=== PATIENT | male | born 1970 | race Caucasian/White ===

== ENCOUNTER 2023-04-15 06:39 | Outpatient (OUT) | payer OTHER, SELFPAY ==
[2023-04-15 06:54] LABS: Basophils Percent Auto 0.3 % (0.2-2.0); Eosinophils Absolute Auto 0.1 10^3/uL (0.0-0.7); Eosinophils Percent Auto 1.5 % (0.9-7.0); Hematocrit 39.1 % (42.0-54.0); Immature Granulocytes Abs Auto 0.04 10^3/uL (0.00-0.03); Immature Granulocytes Pct Auto 0.6 % (0.0-0.5); Lymphocytes Absolute Auto 1.6 10^3/uL (1.2-3.8); Lymphocytes Percent Auto 21.8 % (20.5-60.0); Mean Corpuscular HGB Conc 33.2 g/dL (29.9-35.2); Mean Corpuscular Hemoglobin 30.2 pg (25.9-34.0); Mean Corpuscular Volume 90.9 fL (80.0-94.0); Mean Platelet Volume 9.5 fL (9.5-13.5); Monocytes Absolute Auto 0.6 10^3/uL (0.3-0.8); Monocytes Percent Auto 7.6 % (1.7-12.0); Neutrophils Absolute Auto 4.9 10^3/uL (1.4-6.5); Neutrophils Percent Auto 68.2 % (43.0-75.0); Platelet Count 188 10^3/uL (150-450); Red Cell Distribution Width 12.8 % (11.0-15.0); White Blood Count 7.2 10^3/uL (4.0-11.0)
[2023-04-15 07:51] LABS: Estimated Average Glucose 97 mg/dL
[2023-04-15 08:50] LABS: Alanine Aminotransferase 24 U/L (16-63); Albumin Globulin Ratio 1.1; Albumin Level 3.7 g/dL (3.4-5.0); Alkaline Phosphatase 43 U/L (46-116); Anion Gap 12.3; Aspartate Amino Transferase 17 U/L (15-37); BUN Creatinine Ratio 10.1; Bilirubin Total 0.4 mg/dL (0.2-1.0); Calcium 8.6 mg/dL (8.5-10.1); Chloride 105 mmol/L (98-107); Chol HDL Ratio 4.1; Cholesterol 149 mg/dL (<=200); Estimated GFR (African America >60 (>=60); Estimated GFR (Non-African Ame 50 (>=60); Free T3 2.68 pg/mL (2.18-3.98); Globulin 3.5 g/dL; Glucose 112 mg/dL (74-106); HDL Cholesterol 36 mg/dL (40-60); Potassium 4.3 mmol/L (3.5-5.1); Prostate Specific Antigen Scrn 1.96 ng/mL (<=4.00); Sodium 140 mmol/L (136-145); Thyroid Stimulating Hormone 2.006 uIU/mL (0.358-3.740); Total Protein 7.2 g/dL (6.4-8.2); Triglycerides 121 mg/dL (<=150); VLDL CHOLESTEROL 24.2 mg/dL
[2023-04-16 11:15] LABS: Insulin 22.5 uIU/mL (2.6-24.9)
== END 2023-04-15 06:40 | disposition home or self-care (01) ==
LOC: LAB 06:39
PROVIDERS: PCP Family Medicine; Visit Provider Family Medicine
DX: Z00.00 Encounter for general adult medical examination without abnormal findings (principal); Z12.5 Encounter for screening for malignant neoplasm of prostate
CPT/HCPCS: 36415; 80053; 80061; 83036; 83525; 84436; 84443; 84481; 85025; G0103

== ENCOUNTER 2023-04-22 10:36 | Outpatient (OUT) | payer OTHER, SELFPAY ==
[2023-04-22 12:46] LABS: Creatinine Urine Random 63.18 mg/dL (20.00-300.00)
[2023-04-22 12:51] LABS: Total Volume 24 Hour Urine 3850 mL/24hr
== END 2023-04-22 10:37 | disposition home or self-care (01) ==
LOC: LAB 10:36
PROVIDERS: PCP Family Medicine; Visit Provider Family Medicine
DX: R79.89 Other specified abnormal findings of blood chemistry (principal)
CPT/HCPCS: 82570

== ENCOUNTER 2023-04-29 07:56 | Outpatient (OUT) | payer OTHER, SELFPAY ==
--- NOTE | 2023-04-29 08:05 | US_ITS ---
The [address] [address] Patient Name: JERROD OZUNA MRN: [id number] date: 1970 Sex: M Assigned Patient Location: [place] Current Patient Location: [place] Accession/Order Number: [id number] Exam Date: 04/29/2023 08:06 Report Date: 04/29/2023 11:24 At the request of: LEROY FERNANDO Procedure: US renal bladder US renal bladder EXAM DATE: 04/29/2023 6:06 AM MST COMPARISON: None available. INDICATION: Abnormal labs. TECHNIQUE: Real-time ultrasound scanning of the kidneys and bladder was performed by the elementary educator. Senior Accounting Clerk static images are submitted for review. FINDINGS: Right Kidney: The right kidney measures 11.5 x 6.4 x 6.6 cm. Normal echogenicity. No hydronephrosis. No shadowing calculi. No obvious contour deforming lesion or solid renal mass. Renal cortex measures 1.4 cm. Left Kidney: The left kidney measures 11.7 x 6.1 x 5.4 cm. Normal echogenicity. No hydronephrosis. No shadowing calculi. No obvious contour deforming lesion or solid renal mass. Renal cortex measures 2 cm. Bladder: Bladder volume measures 179 mL with a 17 mL postvoid residual. No focal or diffuse bladder wall thickening noted US/US renal bladder IMPRESSION: 1. No hydronephrosis. 2. PVR measures 17 mL (9%). Electronically authenticated by: QUIQUE KING Date: 04/29/2023 11:24
== END 2023-04-29 07:57 | disposition home or self-care (01) ==
LOC: US 07:58
PROVIDERS: PCP Family Medicine; Visit Provider Family Medicine
DX: N28.9 Disorder of kidney and ureter, unspecified (principal)
CPT/HCPCS: 76770

== ENCOUNTER 2023-10-21 07:22 | Outpatient (OUT) | payer OTHER, SELFPAY ==
--- OUTSIDE RECORDS SUMMARY | 2023-10-21 07:26 | XMS_ITS | CCD ---
Author Organization [facility] Care Team Providers Care Organizational Psychologist Name Role Phone Leroy Peralta Primary Care Physician DR HOSEA BYERS Attending Unavailable BYERS, DR CABRERA Consulting Unavailable AIXA, DR CABRERA Admitting Unavailable DR LEROY PERALTA Primary Care Unavailable Hosea BYERS Attending Unavailable AIXA, Hosea Parada Attending Unavailable BYERS, Hosea Parada Admitting Unavailable AIXA, Hosea Parada Attending Unavailable BYERS, Hosea Parada Attending Unavailable DINARY, BUTHAYNA Referring Unavailable Unavailable Primary Care Provider Unavailabl e Allergies Allergy Classification Reported Allergen(s) Allergy Type Date of Onset Reaction(s) Facility (1 source) Sulfamethoxazole / Trimethoprim Drug Allergy [facility] Repository (4 sources) Sulfamethoxazole / Trimethoprim; Translations: [sulfamethoxazole-t rimethoprim] Drug Allergy 05-18-20 Itching (finding), Itching [facility] (1 source) No Known Medication Allergies; Translations: [No Known Medication Allergies] Propensity to adverse reactions (disorder) [facility] Repository (1 source) Sulfamethoxazole / Trimethoprim; Translations: [SULFAMETHOXAZOLE-T RIMETHOPRIM] Drug Allergy 05-18-20 [facility] Repository Medications Current Medications Medication Drug Class(es) Dates Sig (Normalized) Sig (Original) cephalexin 500 mg oral capsule (1 source) Cephalosporin Antibacterial Start: 06-27-2022 take 1 capsule by mouth twice daily Keflex 500 mg Cap 500 mg = 1 cap(s), Oral, BID, Start one day prior to procedure., # 10 cap(s), Refills(s) 0, Pharmacy: [facility]/pharmacy #[id number], 178, cm, 06/27/22 10:33:00 EST, Height/Length Dosing, 109, kg, 06/27/22 10:33:00 EST, Weight Dosing Start Date: 06/27/22 Status: Ordered diazePAM 10 mg oral tablet (1 source) Benzodiazepine Start: 06-27-2022 Valium 10 mg Tab 10 mg = 1 tab(s), Oral, Once, Take 30 minutes to 1 hour prior to procedure., # 1 tab(s), Refills(s) 0, Pharmacy: [facility]/pharmacy #[id number], 178, cm, 06/27/22 10:33:00 EST, Height/Length Dosing, 109, kg, 06/27/22 10:33:00 EST, Weight Dosing Start Date: 06/27/22 Status: Ordered sildenafil 100 mg oral tablet (1 source) Phosphodiesterase 5 Inhibitor Start: 10-29-2019 take 1 tablet by mouth once daily as needed Viagra 100 mg Tab 100 mg = 1 tab(s), Oral, Daily, PRN erectile dysfunction, Refills(s) 0 Start Date: 10/29/19 Status: Ordered Completed/Discontinued Medications Medication Drug Class(es) Dates Sig (Normalized) Sig (Original) bisoprolol fumarate 5 mg oral tablet (4 sources) beta-Adrenergic Prosper Start: 10-29-2019 bisoprolol (ZEBETA) 5 mg tablet 24 hr buPROPion hydrochloride 150 mg extended release oral tablet (4 sources) Aminoketone Start: 03-12-2023 buPROPion XL (WELLBUTRIN XL) 150 mg 24 hr tablet Start: 10-29-2019 take 1 tablet by tia th once daily buPROPion 150 mg/24 hours ER Tab 150 mg = 1 tab(s), Oral, Daily, Refills(s) 0 Start Date: 10/29/19 Status: Ordered fenofibrate 160 mg oral tablet (4 sources) Peroxisome Proliferator Receptor alpha Agonist Start: 10-29-2019 Fenofibrate (LOFIBRA) 160 mg tablet hydrALAZINE hydrochloride 25 mg oral tablet (4 sources) Arteriolar Vasodilator Start: 10-29-2019 End: 07-20-2023 hydrALAZINE (APRESOLINE) 25 mg tablet losartan potassium 25 mg oral tablet (1 source) Angiotensin 2 Receptor Prosper Start: 05-18-2023 take 1 tablet by mouth once daily losartan (COZAAR) 25 mg tablet Take 1 tablet by mouth once daily. 90 tablet 3 05/18/2023 Active Comment on above: Take 1 tablet by tia th once daily. omega-3 fatty acids 1,000 mg cap (1 source) Start: 05-18-2023 take 1 capsule by mouth once daily omega-3 fatty acids 1,000 mg cap Take 1 capsule by mouth once daily. 30 capsule 3 05/18/2023 Active Comment on above: Take 1 capsule by [facility] once daily. pantoprazole 40 mg delayed release oral tablet (1 source) Proton Pump Inhibitor Start: 05-09-2023 End: 07-20-[address] (PROTONIX) 40 mg tablet simvastatin 10 mg oral tablet (4 sources) HMG-CoA Reductase Inhibitor Start: 10-29-2019 simvastatin (ZOCOR) 10 mg tablet Problems Problem Classification Problem Date Documented Date Episodic/Chronic Cardiac and circulatory congenital anomalies (3 sources) Atrial septal defect 10-29-2019 Chronic Chronic kidney disease (1 source) Chronic kidney disease stage 3; Translations: [CKD stage G3a/A1, GFR 45-59 and albumin creatinine ratio <30 mg/g ([facility])] 07-20-2023 Chronic Chronic kidney disease (1 source) Chronic kidney disease; Translations: [CKD stage G3a/A3, GFR 45-59 and albumin creatinine ratio >300 mg/g (HCC)] Onset: 07-13-2023 Contraceptive and procreative management (5 sources) Contraception status; Translations: [Encounter for other general counseling and advice on contraception] Onset: 06-27-2022 Episodic Disorders of lipid metabolism (5 sources) Hypertriglyceridemia ; Translations: [Hyperlipidemia, unspecified] Onset: 07-28-2022 10-29-2019 Chronic Essential hypertension (5 sources) Benign essential hypertension; Translations: [Essential (primary) hypertension] Onset: 07-28-2022 10-29-2019 Chronic Genitourinary symptoms and ill-defined conditions (3 sources) Nocturia; Translations: [Other proteinuria] Onset: 07-28-2022 07-20-2023 Episodic Hemorrhoids (3 sources) External hemorrhoids 10-29-2019 Episodic Hypertension with complications and secondary hypertension (1 source) Hypertensive renal disease; Translations: [Hypertensive chronic kidney disease with stage 1 through stage 4 chronic kidney disease, or unspecified chronic kidney disease] 07-23-2023 Chronic Nutritional deficiencies (2 sources) Vitamin D deficiency, unspecified; Translations: [Vitamin D deficiency] Onset: 07-13-2023 07-20-2023 Chronic Other male genital disorders (3 sources) Impotence 10-29-2019 Chronic Other male genital disorders (1 source) Male erectile dysfunction, unspecified; Translations: [MALE ERECTILE DYSFUNCTION UNS] Onset: 07-28-2022 Chronic Other screening for suspected conditions (not mental disorders or infectious disease) (2 sources) Encounter for screening for malignant neoplasm of prostate; Translations: [Screening for malignant neoplasm done] Onset: 06-27-2022 Episodic Spondylosis; intervertebral disc disorders; other back problems (3 sources) Sciatica 10-29-2019 Episodic Unclassified (6 sources) Patient encounter status 06-27-2022 Unclassified (1 source) ATRIAL SEPTAL DEFECT UNSPECIFIED; Translations: [ATRIAL SEPTAL DEFECT UNSPECIFIED] Onset: 07-28-2022 Results Test Name Value Interpretation Reference Range Facility 25(OH)D3 [facility] 2023 25-hydroxyvitamin D3 [Mass/Vol] 25.4 ng/mL Low 31.0-80.0 [facility] Comment on above: Order Comment: Speci men Type: BLOOD SPECIMEN Ordering Facility: [facility] Address: [address] [place] [address] Result Comment: Clas sification of 25 [place] Vitamin D status: Deficiency/Insufficiency: < or = 30 ng/ml. Sufficiency/Optimal Levels: 31-80 ng/mL Toxicity: > 100 ng/mL. Test performed by chemiluminescent immunoassay. Performed By: #### 1 989-3 #### [facility] CLIA [id number] [address] [place] [address] [place] ALBUMIN/CREAT RATIO RND URon 07-13-2023 Albumin DL <= 20 mg/L (U) [Mass/Vol] mg/dL Normal [facility] Comment on above: Order Comment: Speci men Type: URINE SPECIMEN Ordering Facility: [facility] Address: [address] [place] [address] Performed By: #### U ACR #### [facility] CLIA [id number] [address] [place] [address] [place] Albumin/Creatinin e (U) [Mass ratio] <7 Normal <30 [facility] Comment on above: Order Comment: Speci men Type: URINE SPECIMEN Ordering Facility: [facility] Address: [address] [place] [address] Result Comment: Adul t Male and Female Nephrotic Criteria: <30 mg/g is considered normal to mildly increased 30-300 mg/g is considered moderately increased >300 mg/g is considered severely increased KDIGO. (2013). KDIGO 2012 Clinical Practice Guideline for the Evaluation and Management of Chronic Kidney Disease. Official Journal of the International Society of Nephrology, 3(1), 1-150. Performed By: #### U ACR #### [facility] CLIA [id number] [address] [place] [address] [place] Creatinine (U) [Mass/Vol] 174.6 mg/dL Normal 20.0-300.0 [facility] Comment on above: Order Comment: Speci men Type: URINE SPECIMEN Ordering Facility: [facility] Address: [address] [place] [address] Performed By: #### U ACR #### [facility] CLIA [id number] [address] [place] [address] [place] Magnesium SerPl-mCncon 07-13 Magnesium [Mass/Vol] 2.0 mg/dL Normal 1.7-2.3 [facility] Comment on above: Order Comment: Speci men Type: BLOOD SPECIMEN Ordering Facility: [facility] Address: [address] [place] [address] Performed By: #### 1 9123-9, 51151-7, 3084-1 #### [facility] CLIA [id number] [address] [place] [address] [place] Prot/Creat Uron 07-13-2023 Protein/Creatinin e (U) [Mass ratio] 0.05 mg/mg Normal <0.15 [facility] Comment on above: Order Comment: Speci men Type: URINE SPECIMEN Ordering Facility: [facility] Address: [address] [place] [address] Result Comment: Adul t Proteinuria Categories: <0.15 mg/mg is considered normal to mildly increased 0.15 - 0.50 mg/mg is considered moderately increased >0.50 mg/mg is considered severely increased KDIGO. (2013). KDIGO 2012 Clinical Practice Guideline for the Evaluation and Management of Chronic Kidney Disease. Official Journal of the International Society of Nephrology, 3(1), 1-150. Performed By: #### 2 890-2 #### [facility] CLIA [id number] [address] [place] [address] [place] Protein/Creatinine (U) [Mass ratio]on 07-13-2023 Creatinine (U) [Mass/Vol] 171.4 mg/dL Normal 20.0-300.0 [facility] Comment on above: Order Comment: Speci men Type: URINE SPECIMEN Ordering Facility: [facility] Address: [address] [place] [address] Performed By: #### 2 890-2 #### [facility] CLIA [id number] [address] [place] [address] [place] Protein (U) [Mass/Vol] 9 mg/dL Normal 0-20 [facility] Comment on above: Order Comment: Speci men Type: URINE SPECIMEN Ordering Facility: [facility] Address: [address] [place] [address] Performed By: #### 2 890-2 #### [facility] CLIA [id number] [address] [place] [address] [place] Renal function 2000 panelon 07-13-2023 Albumin [Mass/Vol] 4.4 g/dL Normal 3.9-4.9 [facility] Comment on above: Order Comment: Speci men Type: BLOOD SPECIMEN Ordering Facility: [facility] Address: [address] [place] [address] Performed By: #### 1 9123-9, 15689-5, 3084-1 #### [facility] CLIA [id number] [address] [place] [address] [place] Anion gap [Moles/Vol] 12 mmol/L Normal 9-18 [facility] Comment on above: Order Comment: Speci men Type: BLOOD SPECIMEN Ordering Facility: [facility] Address: [address] [place] [address] Performed By: #### 1 9123-9, 92561-1, 308-1 #### [facility] CLIA [id number] [address] [place] [address] [place] Calcium [Mass/Vol] 9.9 mg/dL Normal 8.5-10.2 [facility] Comment on above: Order Comment: Speci men Type: BLOOD SPECIMEN Ordering Facility: [facility] Address: [address] [place] [address] Performed By: #### 1 9123-9, 13231-2, 308-1 #### [facility] CLIA [id number] [address] [place] [address] [place] Chloride [Moles/Vol] 105 mmol/L Normal 97-105 [facility] Comment on above: Order Comment: Speci men Type: BLOOD SPECIMEN Ordering Facility: [facility] Address: [address] [place] [address] Performed By: #### 1 9123-9, 77889-0, 3083-1 #### [facility] CLIA [id number] [address] [place] [address] [place] CO2 [Moles/Vol] 25 mmol/L Normal 22-30 [facility] Comment on above: Order Comment: Speci men Type: BLOOD SPECIMEN Ordering Facility: [facility] Address: [address] [place] [address] Performed By: #### 1 9123-9, 75445-5, 308-1 #### [facility] CLIA [id number] [address] [place] [address] [place] Creatinine [Mass/Vol] 1.45 mg/dL High 0.73-1.22 [facility] Comment on above: Order Comment: Stevie chen Type: BLOOD SPECIMEN Ordering Facility: [facility] Address: [address] [place] [address] Performed By: #### 1 9123-9, 43825-9, 3084-1 #### [facility] CLIA [id number] [address] [place] [address] [place] Creatinine and Glomerular filtration rate.predicted panel (S/P/Bld) 58 mL/min/1.73m??? Low >=60 [facility] Comment on above: Order Comment: Stevie chen Type: BLOOD SPECIMEN Ordering Facility: [facility] Address: [address] [place] [address] Result Comment: Yessica mated Glomerular Filtration Rate (eGFR) is calculated using the 2020 CKD-EPI creatinine equation. This equation utilizes serum creatinine, sex, and age as parameters. The creatinine assay has traceable calibration to isotope dilution-mass spectrometry. Refer to KDIGO guidelines for clinical interpretation. In patients with unstable renal function, e.g. those with acute kidney injury, the eGFR may not accurately reflect actual GFR. Performed By: #### 1 9123-9, 25067-2, 308-1 #### [facility] CLIA [id number] [address] [place] [address] [place] Glucose [Mass/Vol] 101 mg/dL High 74-99 [facility] Comment on above: Order Comment: Stevie chen Type: BLOOD SPECIMEN Ordering Facility: [facility] Address: [address] [place] [address] Result Comment: The [place] Diabetes Association (ADA) provides guidance for cutoff values for fasting glucose and random glucose. The ADA defines fasting as no caloric intake for at least 8 hours. Fasting plasma glucose results between 100 to 125 mg/dL indicate increased risk for diabetes (prediabetes). Fasting plasma glucose results greater than or equal to 126 mg/dL meet the criteria for diagnosis of diabetes. In the absence of unequivocal hyperglycemia, results should be confirmed by repeat testing. In a patient with classic symptoms of hyperglycemia or hyperglycemic crisis, random plasma glucose results greater than or equal to 200 mg/dL meet the criteria for diagnosis of diabetes. Reference: Standards of Medical Care in Diabetes 2016, [place] [employer] Association. Diabetes Care. 2016.39(Suppl 1). Performed By: #### 1 9123-9, 84608-1, 3083-1 #### [facility] CLIA [id number] [address] [place] [address] [place] Phosphate [Mass/Vol] 2.9 mg/dL Normal 2.7-4.8 [facility] Comment on above: Order Comment: Speci men Type: BLOOD SPECIMEN Ordering Facility: [facility] Address: [address] [place] [address] Performed By: #### 1 9123-9, 71256-3, 3083-1 #### [facility] CLIA [id number] [address] [place] [address] [place] Potassium [Moles/Vol] 4.6 mmol/L Normal 3.7-5.1 [facility] Comment on above: Order Comment: Speci men Type: BLOOD SPECIMEN Ordering Facility: [facility] Address: [address] [place] [address] Performed By: #### 1 9123-9, 77336-0, 3083-1 #### [facility] CLIA [id number] [address] [place] [address] [place] Sodium [Moles/Vol] 142 mmol/L Normal 136-144 [facility] Comment on above: Order Comment: Speci men Type: BLOOD SPECIMEN Ordering Facility: [facility] Address: [address] [place] [address] Performed By: #### 1 9123-9, 32926-7, 3083-1 #### [facility] CLIA [id number] [address] [place] [address] [place] Urea nitrogen [Mass/Vol] 11 mg/dL Normal 9-24 [facility] Comment on above: Order Comment: Speci men Type: BLOOD SPECIMEN Ordering Facility: [facility] Address: [address] [place] [address] Performed By: #### 1 9123-9, 65206-8, 3084-1 #### [facility] CLIA [id number] [address] [place] [address] [place] Urate SerPl-mCncon 4 Urate [Mass/Vol] 4.3 mg/dL Normal 4.0-8.1 [facility] Comment on above: Order Comment: Speci men Type: BLOOD SPECIMEN Ordering Facility: [facility] Address: [address] [place] [address] Performed By: #### 1 9123-9, 52911-8, 3084-1 #### [facility] CLIA [id number] [address] [place] [address] [place] Semen Analysis PostVason Sheba/Transport Prob No Problems Normal [facility] Comment on above: Performed By: #### 1 [id number], [id number] ####[address] [place] [address] Collect. Meth Masturbation Normal [facility] Comment on above: Performed By: #### 1 [id number], [id number] ####[address] [place] [address] Days Abstained 4 day(s) Normal 2-5 [facility] Comment on above: Performed By: #### 1 [id number], [id number] ####[address] [address] Post Vas Screen No Sperm Seen Normal <=0 [facility] Comment on above: Result Comment: A Co ncentration Technique is used to confirm any semen which is azospermic (no sperm seen). Performed By: #### 1 [id number], [id number] ####[address] [place] [address] Spec. Container Steril Container Normal [facility] Comment on above: Performed By: #### 1 [id number], [id number] ####[facility] [id number] [place] [address] Spec. Temp 24 DegC Normal 20-37 [facility] Comment on above: Performed By: #### 1 [id number], [id number] ####[facility] [address] [place] [address] Sperm Morphon 05-29-2023 Sperm Morph No sperm identified (A concentration technique is used to evaluate this specimen). ICD10 Z30.9 Invalid Interpretation Code [facility] Comment on above: Other Comment: Order Added by Discern Expert. Sperm Morph No sperm identified (A concentration technique is used to evaluate this specimen). Invalid Interpretation Code [facility] Comment on above: Order Comment: Order Added by Discern Expert. Performed By: #### 1 [id number], [id number] ####[facility] [address] [place] [address] Physician Orderon 05-20-2023 Physician Order [id number]# 1.00TIFF Normal [facility] Ambulatory Visit Summaryon 0 08-08-2022 Ambulatory Visit Summary AMAURI OZUNA :1970 Visit Date:08/08/2022 Ambulatory Visit Instructions Your Diagnosis Status post vasectomy Screening PSA (prostate specific antigen) Your Care Team Attending Physician - Hosea BYERS MD Primary Care Physician - Leroy Peralta MD This Is Your Medications List Contact prescribing physician if questions or concerns bisoprolol (bisoprolol 5 mg Tab) buPROPion (buPROPion 150 mg/24 hours ER Tab) fenofibrate (fenofibrate 160 mg oral tablet) hydrALAZINE (hydrALAZINE 25 mg Tab) simvastatin (simvastatin 10 mg Tab) Procedures Performed Vasectomy (07/25/2022), Colonoscopy, Hemorrhoidectomy. Discharge Vitals Height 178 cm Height 70 in Weight 109 kg Weight 239.8 lb BMI 34.4 What to do next You Need to Schedule the Following Appointments Follow Up with Hosea BYERS MD, URL When: Where: [facility] [address] [place] [address]- You Need to Complete the Following Semen Analysis Post Vasectomy, Semen, Routine collect, 08/08/22, Order for future visit, Nurse collect, Status post vasectomy, Print Label By Order Location Semen Analysis Post Vasectomy, Semen, Routine collect, 08/08/22, Order for future visit, Nurse collect, Status post vasectomy, Print Label By Order Location Medications What How Much When Instructions Unchanged bisoprolol (bisoprolol 5 mg Tab) 1 Tablets By Mouth Every day Contact prescribing physician if questions or concerns Unchanged buPROPion (buPROPion 150 mg/ 24 hours ER Tab) 1 Tablets By Mouth Every day Contact prescribing physician if questions or concerns Unchanged fenofibrate (fenofibrate 160 mg oral tablet) 1 Tablets By Mouth Every day Contact prescribing physician if questions or concerns Unchanged hydrALAZINE (hydrALAZINE 25 mg Tab) 1 Tablets By Mouth 2 times a day Contact prescribing physician if questions or concerns Unchanged simvastatin (simvastatin 10 mg Tab) 1 Tablets By Mouth Once a day (at bedtime) Contact prescribing physician if questions or concerns Allergies Bactrim (Itching) Problems Ongoing - Any problem that you are currently receiving treatment for. Atrial septal defect Benign essential hypertension ED (erectile dysfunction) Encounter for vasectomy assessment External hemorrhoids Hyperglyceridemia Sciatica Screening PSA (prostate specific antigen) Status post vasectomy Education Materials Contraception Choices Contraception, also called control, refers to methods or devices that prevent . Hormonal methods Contraceptive implant A contraceptive implant is a thin, plastic tube that contains a hormone. It is inserted into the upper part of the arm. It can remain in place for up to 3 years. Progestin-only injections Progestin-only injections are injections of progestin, a synthetic form of the hormone progesterone. They are given every 3 months by a health care provider. control pills control pills are pills that contain hormones that prevent . They must be taken once a day, preferably at the same time each day. control patch The control patch contains hormones that prevent . It is placed on the skin and must be changed once a week for three weeks and removed on the fourth week. A prescription is needed to use this method of contraception. Vaginal ring A vaginal ring contains hormones that prevent . It is placed in the vagina for three weeks and removed on the fourth week. After that, the process is repeated with a new ring. A prescription is needed to use this method of contraception. Emergency contraceptive Emergency contraceptives prevent after unprotected sex. They come in pill form and can be taken up to 5 days after sex. They work best the sooner they are taken after having sex. Most emergency contraceptives are available without a prescription. This method should not be used as your only form of control. Barrier methods Male condom A male condom is a thin sheath that is worn over the penis during sex. Condoms keep sperm from going inside a woman's body. They can be used with a spermicide to increase their effectiveness. They should be disposed after a single use. Female condom A female condom is a soft, loose-fitting sheath that is put into the vagina before sex. The condom keeps sperm from going inside a woman's body. They should be disposed after a single use. Diaphragm A diaphragm is a soft, dome-shaped barrier. It is inserted into the vagina before sex, along with a spermicide. The diaphragm blocks sperm from entering the uterus, and the spermicide kills sperm. A diaphragm should be left in the vagina for 6?8 hours after sex and removed within 24 hours. A diaphragm is prescribed and fitted by a health care provider. A diap (more content not included)... Normal [facility] Patient Educationon 08-08-19 23 Patient Education Obstetrics and Gynecology Contraception Choices Contraception, also called control, refers to methods or devices that prevent . Hormonal methods Contraceptive implant A contraceptive implant is a thin, plastic tube that contains a hormone. It is inserted into the upper part of the arm. It can remain in place for up to 3 years. Progestin-only injections Progestin-only injections are injections of progestin, a synthetic form of the hormone progesterone. They are given every 3 months by a health care provider. control pills control pills are pills that contain hormones that prevent . They must be taken once a day, preferably at the same time each day. control patch The control patch contains hormones that prevent . It is placed on the skin and must be changed once a week for three weeks and removed on the fourth week. A prescription is needed to use this method of contraception. Vaginal ring A vaginal ring contains hormones that prevent . It is placed in the vagina for three weeks and removed on the fourth week. After that, the process is repeated with a new ring. A prescription is needed to use this method of contraception. Emergency contraceptive Emergency contraceptives prevent after unprotected sex. They come in pill form and can be taken up to 5 days after sex. They work best the sooner they are taken after having sex. Most emergency contraceptives are available without a prescription. This method should not be used as your only form of control. Barrier methods Male condom A male condom is a thin sheath that is worn over the penis during sex. Condoms keep sperm from going inside a woman's body. They can be used with a spermicide to increase their effectiveness. They should be disposed after a single use. Female condom A female condom is a soft, loose-fitting sheath that is put into the vagina before sex. The condom keeps sperm from going inside a woman's body. They should be disposed after a single use. Diaphragm A diaphragm is a soft, dome-shaped barrier. It is inserted into the vagina before sex, along with a spermicide. The diaphragm blocks sperm from entering the uterus, and the spermicide kills sperm. A diaphragm should be left in the vagina for 6?8 hours after sex and removed within 24 hours. A diaphragm is prescribed and fitted by a health care provider. A diaphragm should be replaced every 1?2 years, after giving , after gaining more than 15 lb (6.8 kg), and after pelvic surgery. Cervical cap A cervical cap is a round, soft latex or plastic cup that fits over the cervix. It is inserted into the vagina before sex, along with spermicide. It blocks sperm from entering the uterus. The cap should be left in place for 6?8 hours after sex and removed within 48 hours. A cervical cap must be prescribed and fitted by a health care provider. It should be replaced every 2 years. Sponge A sponge is a soft, circular piece of polyurethane foam with spermicide on it. The sponge helps block sperm from entering the uterus, and the spermicide kills sperm. To use it, you make it wet and then insert it into the vagina. It should be inserted before sex, left in for at least 6 hours after sex, and removed and thrown away within 30 hours. Spermicides Spermicides are chemicals that kill or block sperm from entering the cervix and uterus. They can come as a cream, jelly, suppository, foam, or tablet. A spermicide should be inserted into the vagina with an applicator at least 10?15 minutes before sex to allow time for it to work. The process must be repeated every time you have sex. Spermicides do not require a prescription. Intrauterine contraception Intrauterine device (IUD) An IUD is a T-shaped device that is put in a woman's uterus. There are two types: ? Hormone IUD.This type contains progestin, a synthetic form of the hormone progesterone. This type can stay in place for 3?5 years. ? Copper IUD.This type is wrapped in copper wire. It can stay in place for 10 years. Permanent methods of contraception Female tubal ligation In this method, a woman's fallopian tubes are sealed, tied, or blocked during surgery to prevent eggs from traveling to the uterus. Hysteroscopic sterilization In this method, a small, flexible insert is placed into each fallopian tube. The inserts cause scar tissue to form in the fallopian tubes and block them, so sperm cannot reach an egg. The procedure takes about 3 months to be effective. Another form of control must be used during those [address] (more content not included)... [facility] Office/Clinic Noteon 08-08-2022 Urology Office/Clinic Note Chief Complaint S/P Vasectomy HPI Staff S/P Vasectomy done 07/25/22. Did have increased pain and bruising on Lt side, increased with activity. Subsided 1 wk after procedure. Denies any current complaints. History of Present Illness Tests reviewed: pathology. I have reviewed the previous health record information and history for this patient from Dr. Byers. I have reviewed and verified the staff HPI to be accurate for this encounter. There have been no associated fever, chills, flank pain, or blood in the urine. Denies any urinary infections since last encounter. Review of Systems PHQ Score Initial Depression Screen Score: 0 ROS - Provider Constitutional: denies weight loss, denies hot flashes. Eyes: denies eye problems. Gastrointestinal: denies nausea, denies vomiting. Cardiovascular: denies chest pain or angina. Integumentary: no dryness Musculoskeletal: denies musculoskeletal symptoms. ENMT: denies otolaryngeal symptoms. Respiratory: no shortness of breath. Heme/Lymph: denies easy bleeding tendency, denies easy bruising tendency. Psychiatric: no confusion, no anxiety. Genitourinary: See HPI. Physical Exam Vitals & Measurements HT: 70 in HT: 178 cm WT: 109 kg WT: 239.8 lb BMI: 34.4 General Appearance: alert, no distress, well nourished, well developed male. Genitourinary: normal scrotum, normal testes, normal urethra, normal epididymis, normal vas deferens/spermatic cord. Flank Pain: none. Bladder: nonpalpable. Assessment/Plan 1. Status post vasectomy (Z98.52: Vasectomy status) S/P vasectomy done 07/25/22. Pathology shows right and left vas deferens within normal limits. No sample provided for UA today. Given sterile cups and order for PO vas semen analysis. Did have increased pain and bruising on Lt side, increased with activity. Subsided 1 wk after procedure. Denies any current complaints. Path discussed, negative for malignancy. PE: healing well. Follow up PRN. Pt understands and agrees with plan. 2. Screening PSA (prostate specific antigen) (Z12.5: Encounter for screening for malignant neoplasm of prostate) PCP is Dr. Peralta. Most recent PSA 0.69 done 06/01/21 (reported by pt). Did not have a PSA done in 2021. Reports he has annual blood work done for work, believes PSA screening is included. Last VINCENT around March, reports normal. Most recent PSA normal for his age range. -cont PSA monitoring with PCP Follow-up With When Contact Information AIXA NORMAN, Hosea Parada, URL [facility] [address] [place] [address]- Additional Instructions: PRN Patient Education Contraception Choices I, Juana Lynn, personally scribed for Dr. Byers on 08/08/2022 16:23:33. . Documentation recorded by the scribe, Juana Lynn, accurately reflects the services(s) I performed and decisions made by me. Authenticated by Dr. Byers on 08/08/2022 16:28:23. Problem List/Past Medical History Ongoing Atrial septal defect Benign essential hypertension ED (erectile dysfunction) Encounter for vasectomy assessment External hemorrhoids Hyperglyceridemia Sciatica Screening PSA (prostate specific antigen) Status post vasectomy Historical No qualifying data Procedure/Surgical History Vasectomy (07/25/2022), Colonoscopy, Hemorrhoidectomy. Medications bisoprolol 5 mg Tab, 5 mg= 1 tab(s), Oral, Daily buPROPion 150 mg/24 hours ER Tab, 150 mg= 1 tab(s), Oral, Daily fenofibrate 160 mg oral tablet, 160 mg= 1 tab(s), Oral, Daily hydrALAZINE 25 mg Tab, 25 mg= 1 tab(s), Oral, BID simvastatin 10 mg Tab, 10 mg= 1 tab(s), Oral, Once a day (at bedtime) Allergies Bactrim (Itching) Social History Alcohol Current, Wine, Liquor, 1-2 times per week, 10/29/2019 Substance Abuse - Denies Substance Abuse, 10/29/2019 Tobacco Never (less than 100 in lifetime) Tobacco Use:. Never Smokeless Tobacco Use:., 08/08/2022 Family History Acute myocardial infarction: Mother. Hyperlipidemia: Mother and Father. Hypertension: Mother and Father. Stroke: Father. Ulcerative colitis: Mother. [facility] Comment on above: Result Comment: Elec tronically Signed By: Hosea BYERS MD\.br\Date and Time Signed: 08/08/22 16:28 EST\.br\Electronically Co-Signed By: Juana Lynn.br\Date and Time Co-Signed: 08/08/22 16:28 EST Operative Reporton 3 Operative Report [id number] .00CD:127 [facility] Pathology Noteon 07-27-2022 Pathology Note [id number] .00CD:127 [facility] Operative Reporton 3 Operative Report [id number] .[id number]:127 [facility] Consent for Procedure/Surger yon 07-01-2022 Consent for Procedure/Surgery [id number] .[id number]:127 [facility] Ambulatory Visit Summaryon 0 06-27-2022 Ambulatory Visit Summary AMAURI OZUNA :1970 Visit Date:06/27/2022 Ambulatory Visit Instructions Your Diagnosis Encounter for vasectomy assessment Screening PSA (prostate specific antigen) Tests Performed Urnls Dip Stick Auto w/o Microscopy POC [id number] Your Care Team Attending Physician - Hosea BYERS MD Primary Care Physician - Leroy Peralta MD This Is Your Medications List cephalexin (Keflex 500 mg Cap) diazepam (Valium 10 mg Tab) Contact prescribing physician if questions or concerns bisoprolol (bisoprolol 5 mg Tab) buPROPion (buPROPion 150 mg/24 hours ER Tab) fenofibrate (fenofibrate 160 mg oral tablet) hydrALAZINE (hydrALAZINE 25 mg Tab) sildenafil (Viagra 100 mg Tab) simvastatin (simvastatin 10 mg Tab) Procedures Performed Colonoscopy, Hemorrhoidectomy. Discharge Vitals Heart Rate (Peripheral) 75 Respiratory Rate 16 Blood Pressure 139/88 Height 178 cm Height 70 in Weight 109 kg Weight 239.8 lb BMI 34.4 What to do next Scheduled Follow-Up Appointments Monday 3:30 PM EST With: AIXA NORMAN, oHsea Parada Where: [facility] Formson 06-27-2022 Forms [id number] .[id number]:127 [facility] Patient Educationon 06-27-19 23 Patient Education Urology Vasectomy, Care After This sheet gives you information about how to care for yourself after your procedure. Your health care provider may also give you more specific instructions. If you have problems or questions, contact your health care provider. What can I expect after the procedure? After your procedure, it is common to have: ? Mild pain, swelling, redness, or discomfort in your scrotum. ? Some blood coming from your incisions or puncture sites for one or two days. ? Blood in your semen. Follow these instructions at home: Medicines ? Take [id number] and prescription medicines only as told by your health care provider. ? Avoid taking NSAIDs such as aspirin and ibuprofen, because these medicines can make bleeding worse. Activity ? For the first 2 days after surgery, avoid physical activity and exercise that require a lot of energy. Ask your health care provider what activities are safe for you. ? Do not participate in sports or perform heavy physical labor until your pain has improved, or until your health care provider says it is okay. ? Do not ejaculate for at least 1 week after the procedure, or as long as directed. ? You may resume sexual activity 7?10 days after your procedure, or when your health care provider approves. Use a different method of control (contraception) until you have had test results that confirm that there is no sperm in your semen. Scrotal support ? Use scrotal support, such as a jock strap or underwear with a supportive pouch, as needed for one week after your procedure. ? If you feel discomfort in your scrotum, you may remove the scrotal support to see if the discomfort is relieved. Sometimes scrotal support can press on the scrotum and cause or worsen discomfort. ? If your skin gets irritated, you may add some germ-free (sterile), fluffed bandages or a clean washcloth to the scrotal support. General instructions ? Put ice on the injured area: ? Put ice in a plastic bag. ? Place a towel between your skin and the bag. ? Leave the ice on for 20 minutes, 2?3 times a day. ? Check your incisions or puncture sites every day for signs of infection. Check for: ? Redness, swelling, or pain. ? Fluid or blood. ? Warmth. ? Pus or a bad smell. ? Leave stitches (sutures) in place. The sutures will dissolve on their own and do not need to be removed. ? Keep all follow-up visits as told by your health care provider. This is important because you will need a test to confirm that there is no sperm in your semen. Multiple ejaculations are needed to clear out sperm that were beyond the vasectomy site. You will need one test result showing that there is no sperm in your semen before you can resume unprotected sex. This may take 2?4 months after your procedure. ? Do not drive for 24 hours if you were given a sedative to help you relax. Contact a health care provider if: ? You have redness, swelling, or more pain around your incision or puncture site, or in your scrotum area in general. ? You have bleeding from your incision or puncture site. ? You have pus or a bad smell coming from your incision or puncture site. ? You have a fever. ? Your incision or puncture site opens up. Get help right away if: ? You develop a rash. ? You have difficulty breathing. Summary ? After your procedure it is common to have mild pain, swelling, redness, or discomfort in your scrotum. ? Avoid physical activity and exercise that requires a lot of energy for the first 2 days after surgery. ? Put ice on the injured area. Leave the ice on for 20 minutes, 2?3 times a day. ? Do not drive for 24 hours if you were given a sedative to help you relax. This information is not intended to replace advice given to you by your health care provider. Make sure you discuss any questions you have with your health care provider. Document Released: 12/16/2005 Document Revised: 05/11/2018 Document Reviewed: 08/25/2017 [employer] Patient Education ? 2019 [employer]. [facility] Urology Office/Clinic Noteon 06-27-2022 Urology Office/Clinic Note Chief Complaint vascetomy consult HPI Staff New pt for vasectomy consult today. Pt has 3 children and desires sterilization. Dysuria: no Incomplete bladder emptying: no Hematuria: no Frequency: no Urgency: no Nocturia: 1x Stream: slower Leaking: no Post void dripping: no Wearing pads/ Depends: no Urge incontinence: no Stress incontinence: no Incontinence without Sensory Awareness: no Abdominal pain: no Flank pain: no Sexual complaints: no History of Present Illness Tests reviewed: reviewed UA I have reviewed the previous health record information and history for this patient. I have reviewed and verified the staff HPI to be accurate for this encounter. There have been no associated fever, chills, flank pain, or blood in the urine. Denies any urinary infections since last encounter. Review of Systems PHQ Score Initial Depression Screen Score: 0 ROS - Provider Constitutional: denies weight loss, denies hot flashes. Eyes: denies eye problems. Gastrointestinal: denies nausea, denies vomiting. Cardiovascular: denies chest pain or angina. Integumentary: no dryness Musculoskeletal: denies musculoskeletal symptoms. ENMT: denies otolaryngeal symptoms. Respiratory: no shortness of breath. Heme/Lymph: denies easy bleeding tendency, denies easy bruising tendency. Psychiatric: no confusion, no anxiety. Genitourinary: See HPI. Physical Exam Vitals & Measurements HR: 75(Peripheral) RR: 16 BP: 139/88 HT: 70 in HT: 178 cm WT: 109 kg WT: 239.8 lb BMI: 34.4 General Appearance: alert, no distress, well nourished, well developed male. Head: normocephalic . Eyes: normal orbit and globe. ENMT: normal examination of external ears. Chest: Lungs CTA, respirations non labored. Cardiovascular: regular rate and rhythm. Abdomen: soft, non distended, no tenderness, no mass or organomegaly, no hernia. Genitourinary: normal scrotum, normal testes, normal urethra, normal epididymis, normal vas deferens/spermatic cord. Flank Pain: none. Bladder: nonpalpable. Penis: normal shaft, normal glans. Lymph Nodes: unremarkable palpation of the cervical area. Skin: warm, dry, no bruising. Psychiatric: cooperative, affect appropriate for age, normal judgement, euthymic mood. Assessment/Plan Denies any hx of kidney stones. 1. Encounter for vasectomy assessment (Z30.09: Encounter for other general counseling and advice on contraception) New pt here for for vasectomy consult today. UA today negative for blood and infection. Denies any urinary habit complaints. Pt has 3 children and desires sterilization. Educational pamphlets provided. Inquired about carrying upstairs, fine, otherwise avoid strenuous activity. Ice scrotum day of procedure and entire day after procedure. PE: normal. Will schedule Vasectomy. The procedural risks, benefits, details, and treatment alternatives of sterilization have been discussed with the patient today. He understands this procedure is considered permanent, even though vasectomy reversals can be performed. There is no guarantee of successful reversal resulting in , however. Risks discussed include bleeding, infection, failure with in about 1:2500, post-vasectomy syndrome (chronic pain in the testicle or scrotum), possible association with prostate cancer development in the future, and erection problems, among others. Despite these risks, he wishes to proceed. He also understands that he is not considered sterile until a negative semen sample has been received after about 2-3 months after the vasectomy. Full informed consent has been obtained. Will order Local anesthesia. Valium and abx rxs sent to [facility] (pt confirmed pharmacy). 2. Screening PSA (prostate specific antigen) (Z12.5: Encounter for screening for malignant neoplasm of prostate) PCP is Dr. Peralta. Most recent PSA 0.69 done 06/01/21 (reported by pt). Did not have a PSA done in 2021. Reports he has annual blood work done for work, believes PSA screening is included. Last VINCENT around March, reports normal. Discussed most recent PSA normal for his age range. Follow-up With When Contact Information Hosea BYERS MD, URL [facility] [address] [place] [address]- Additional Instructions: schedule vasectomy Patient Education Vasectomy, Care After I, Juana Lynn, personally scribed for Dr. Byers on 06/27/2022 11:42:43. . Documentation recorded by the scribe, Juana Lynn, accurately reflects the services(s) I performed and decisions made by me. Authenticated by Dr. Byers on 06/27/2022 11:45:18. Problem List/Past Medical History Ongoing Atrial septal defect Benign essential hypertension ED (erectile dysfunction) Encounter for vasectomy assessment External hemorrhoids Hyperglyceridemia Sciatica Screening PSA (prostate specific antigen) Historical No qualifying data Procedure/Surgi (more content not included)... [facility] Comment on above: Result Comment: Elec tronically Signed By: Hosea BYERS MD\.br\Date and Time Signed: 06/27/22 11:45 EST\.br\Electronically Co-Signed By: Juana Lynn\.br\Date and Time Co-Signed: 06/27/22 11:42 EST Vital Signs Date Time Vital Sign Value Performing Clinician Faci lity 07-20-2023 10:27-0500 Body height 177.8 cm Marla Jarrell MD Work Phone: [facility] 07-20-2023 10:27-0500 Body weight 94.35 kg Marla Jarrell MD Work Phone: [facility] 07-20-2023 10:27-0500 Diastolic blood pressure 91 mm[Hg] Marla Jarrell MD Work Phone: [facility] 07-20-2023 10:27-0500 Heart rate 53 /min Marla Jarrell MD Work Phone: [facility] 07-20-2023 10:27-0500 Systolic blood pressure 154 mm[Hg] Marla Jarrell MD Work Phone: [facility] 06-27-2022 10:13-0500 Blood Pressure Location Hosea BYERS [facility] 06-27-2022 10:13-0500 Diastolic blood pressure 88 mm[Hg] Hosea BYERS [facility] 06-27-2022 10:13-0500 Heart rate 75 /min Hosea BYERS [facility] 06-27-2022 10:13-0500 Respiratory rate 16 /min Hosea BYERS [facility] 06-27-2022 10:13-0500 Systolic blood pressure 139 mm[Hg] Hosea BYERS [facility] Encounters Encounter Date Encounter Type Care Provider Facility Start: 07-20-2023 End: 07-20-2023 Office outpatient visit 25 minutes Marla Jarrell MD Work Phone: [facility] Comment on above: CKD stage G3a/A1, GF R 45-59 and albumin creatinine ratio <30 mg/g (HCC) (Primary Dx); Vitamin D deficiency; Other proteinuria; Hypertensive kidney disease Start: 07-13-2023 End: 07-13-2023 ambulatory MARLA JARRELL Facility:[facility] Start: 05-20-2023 End: 05-21-2023 ambulatory Hosea BYERS Facility:[facility] Start: 05-20-2023 End: 05-20-2023 Lab Drop off Hosea BYERS [facility] Start: 08-08-2022 End: 08-09-2022 ambulatory Hosea BYERS Facility:[facility] Start: 08-08-2022 End: 08-08-2022 Patient encounter procedure Hosea BYERS [facility] Start: 07-25-2022 End: 07-26-[address] HOSEA BYERS Facility: Start: 06-27-2022 End: 06-28-2022 ambulatory Hosea BYERS Facility:[facility] Start: 06-27-2022 End: 06-27-2022 Patient encounter procedure Hosea BYERS [facility] Procedures Date Procedure Procedure Detail Performing Clinician Start: 08-08-2022 H/O: vasectomy Hosea BYERS Start: 07-25-2022 Vasectomy Hosea GALLO Colonoscopy Hosea BYERS Hemorrhoidectomy Hosea LOWE Plan of Treatment Date Care Activity Detail Author Start: 07-13-2024 Creatinine measurement Serum Creatin ine [facility] Start: 01-18-2024 End: 04-18-2024 25-hydroxyvitamin D3 [Mass/volume] in Serum or Plasma VITAMIN D 25 HYDROXY Lab Routine CKD stage G3a/A1, GFR 45-59 and albumin creatinine ratio <30 mg/g (HCC) Vitamin D deficiency Other proteinuria Expected: 01/18/2024, Expires: 04/18/2024 CP [facility] Work Phone: Comment on above: Expected: 01/18/2024 , Expires: 04/18/2024 Start: 01-18-2024 End: 04-18-2024 ALBUMIN/CREAT RATIO RND UR ALBUMIN/CREAT RATIO RND UR Lab Routine CKD stage G3a/A1, GFR 45-59 and albumin creatinine ratio <30 mg/g ([facility]) Vitamin D deficiency Other proteinuria Expected: 01/18/2024, Expires: 04/18/2024 CP [facility] Work Phone: Comment on above: Expected: 01/18/2024 , Expires: 04/18/2024 Start: 01-18-2024 End: 04-18-2024 Magnesium [Mass/volume] in Serum or Plasma MAGNESIUM BLD Lab Routine CKD stage G3a/A1, GFR 45-59 and albumin creatinine ratio <30 mg/g ([facility]) Vitamin D deficiency Other proteinuria Expected: 01/18/2024, Expires: 04/18/2024 NICOLLE [facility] Work Phone: Comment on above: Expected: 01/18/2024 , Expires: 04/18/2024 Start: 01-18-2024 End: 04-18-2024 Parathyrin.intact [Mass/volume] in Serum or Plasma PTH INTACT BLD Lab Routine CKD stage G3a/A1, GFR 45-59 and albumin creatinine ratio <30 mg/g ([facility]) Vitamin D deficiency Other proteinuria Expected: 01/18/2024, Expires: 04/18/2024 CP [facility] Work Phone: Comment on above: Expected: 01/18/2024 , Expires: 04/18/2024 Start: 01-18-2024 End: 04-18-2024 Renal function 2000 panel - Serum or Plasma RENAL FUNCTION PANEL Lab Routine CKD stage G3a/A1, GFR 45-59 and albumin creatinine ratio <30 mg/g (HCC) Vitamin D deficiency Other proteinuria Expected: 01/18/2024, Expires: 04/18/2024 CP [facility] Work Phone: Comment on above: Expected: 01/18/2024 , Expires: 04/18/2024 Start: 01-18-2024 End: 04-18-2024 Urate [Mass/volume] in Serum or Plasma URIC ACID BLOOD Lab Routine CKD stage G3a/A1, GFR 45-59 and albumin creatinine ratio <30 mg/g (HCC) Vitamin D deficiency Other proteinuria Expected: 01/18/2024, Expires: 04/18/2024 [facility] Work Phone: Comment on above: Expected: 01/18/2024 , Expires: 04/18/2024 Start: 06-12-2023 Depression Assessment Depression Ass essment [facility] Start: 02-10-2023 Influenza vaccination Influenza Vacc ine (#1) [facility] Start: 09-20-2021 Shingrix Vaccine (1 of 2) Shingrix Vaccine (1 of 2) [facility] Start: 09-20-2016 Diabetes Screening Diabetes Screenin g [facility] Start: 09-20-2016 Screening for malign ant neoplasm of colon [facility] Start: 09-20-2006 Lipid panel Lipid Screening [facility] Start: 09-20-1990 Urine microalbumin profile DTaP,Tdap,Td Vaccine (1 - Tdap) [facility] Start: 09-20-1989 Annual PCP Team [employer] arist[employer] Disease Visit Annual PCP Team Chronic Disease Visit [facility] Start: 09-20-1989 Complete blood count Hemoglobin/Vitaliy tocrit [facility] Start: 09-20-1989 Hepatitis C screening Hepatitis C Sc reening [facility] Start: 09-20-1989 HIV screening HIV Screening [facility] Start: 03-22-1972 Covid-19 Vaccine (#1) Covid-19 Vacci ne (#1) [facility] Start: 1970 Hepatitis B Vaccine (1 of 3 - 3-dose series) Hepatitis B Vaccine (1 of 3 - 3-dose series) [facility] Payers Date Payer Category Payer Unknown [id number] 1971 Unknown [id number] 1971 Unknown [id number] 1971 Unknown [id number] 1971 Unknown [id number] 1959 Unknown [id number] Social History Date Type Detail Facility Start: 06-27-2022 End: 08-08-2022 Tobacco smoking status Never smoked tobacco (finding) [facility] Tobacco smoking status Never [facility] Start: 07-20-2023 Sex Assigned At Male F [facility] Tobacco smoking status NHIS Tobacco smoking consumption unknown [facility] Start: 07-20-2023 History of Social function [facility] Start: 1970 Sex Assigned At Not on file C [facility] Functional Status Date Assessment Result Facility 08-08-2022 Functional Status N/A [facility] 06-27-2022 Functional Status N/A [facility] History of Present illness Narrative 07-20-2023 Marla Jarrell MD - 07/20/2023 10:47 AM EST Note Date & Type Note Facility 07-20-2023 History of Presen t illness Narrative Nephrology Department OUTPATIENT VISIT DATE Jul 20, 2023 OUTPATIENT VISIT TYPE Established visit Self-referral Cc: Chronic kidney disease, proteinuria second visit White coat symdrome Today's office visit July 20, 2023: Patient lost 23 pounds since last visit he has been following intermittent fasting. Limited protein intake to 56 g of protein a day. Can increase it now to 60 to 70 g a day. Vitamin D deficiency with vitamin D level of 25 to start D3 1000 units daily Hypertension blood pressure well-controlled at home 120/80. Office blood pressure elevated. To continue losartan. To discontinue hydralazine Risk factor for CKD: Excessive exogenous protein intake Analgesic use Hypertension Hyperlipidemia cabinet builder Proteinuria: 24-hour urinary protein 2432 milligram/g July 13, 2023 albumin to creatinine ratio: Less than 7 mg/g Protein to creatinine ratio 0.05 mg/g Uric acid 4.3 Serum creatinine 1.45 mg deciliter eGFR 58. Likely serum creatinine higher than average due to increased muscle mass and most likely his GFR is higher than that. We can check Cystatin C to a certain true underlying GFR History of present illness: Amauri Ozuna is a 52 year old for proteinuric kidney disease evaluation. Patient lives in [facility]. Works in [place]. Renal history: Patient reports few years history of practicing heavy exercises and consuming large amount of protein from the age of 39 to 48 years old. During the same. Patient reports heavy NSAID use at that time. Hypertension managed with bisoprolol 5 mg p.o. daily, hydralazine 25 mg p.o. twice daily Hyperlipidemia managed with simvastatin, hypertriglyceridemia managed with fenofibrate 160 mg p.o. daily patient on bupropion 100 mg twice a day history of atrial septal defect past surgical history significant for vasectomy in 2012. Both parents with diabetes and hypertension. Father alive 80 years old diagnosed with heart disease, diabetes Mother alive 74-year-old patient with daughter and son. Social history: Denies smoking or alcohol use. Allergy to sulfa Patient was diagnosed with fluorescein 2005 Patient with elevated triglycerides, hyperlipidemia and has been taken fenofibrate's. 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 Today's office visit July 20, 2023: Patient changed his diet significantly since last visit and he lost 23 pounds also intermittent fasting and he lowered his protein intake. His kidney function is better as well as his protein in the urine resolved completely Patient was evaluated today, treatment plan discussed. CKD workup ordered Patient risk factors: well controlled. Denies uremic symptoms. To continue same regimen. Labs ordered to monitor for medication side effects. Patient reports better blood pressure BP 120-130/80, HR 60, Afebrile, wt stable. Meds reviewed, refilled. Patient's blood pressure is well controlled at home. Reports fluid retention. Reports frothy urine. -Duration (when): years -Location (where): kidneys -Severity (ex: creat 4.5, BP 200/100): Cr to 1.4 mg liter eGFR 40-50 mill per minute per 1.73 m graft -Context: Heavy exogenous protein intake, analgesic use, hypertension -Timing/Modifying factors/Associated symptoms (ex: meds/continuous/SOB/edema): continuous Recent procedures/hospitalizations/contrasted CT scans: denies Patient denies CP, SOB, orthopnea or PND. Denies progressive leg edema No nausea, emesis,abdominal pain or diarrhea No dysuria, gross hematuria or new flank pain. No fever or chills. No dizziness,JOHNSON or focal numbness or weakness. Wt is stable ALLERGIES Allergen Reactions Bactrim [Sulfametho* Itching Current Outpatient Medications Medication Sig bisoprolol (ZEBETA) 5 mg tablet buPROPion XL (WELLBUTRIN XL) 150 mg 24 hr tablet Fenofibrate (LOFIBRA) 160 mg tablet simvastatin (ZOCOR) 10 mg tablet losartan (COZAAR) 25 mg tablet Take 1 tablet by mouth once daily. omega-3 fatty acids 1,000 mg cap Take 1 capsule by mouth once daily. No current facility-administered medications for this visit. No past medical history on file. No past surgical history on file. No family history on file. REVIEW OF SYMPTOMS: CONSTITUTIONAL: Denies fevers, chills, and weight changes. Denies fatigue/malaise. PULMONARY: Denies shortness of breath, wheezing, cough or hemoptysis. CARDIOLOGY: Denies chest pain, palpitations, HOYT, orthopnea or PND. GI: No anorexia, nausea, vomiting, dysphagia, diarrhea, constipation, abdominal pain, hematochezia or melena. : No urinary hesitancy or dribbling. No nocturia or urinary frequency. No abnormal discharge. No hematuria, dysuria, or flank pain. MUSCULO-SKELETAL: No joint pain, swelling or erythema. SKIN: Denies any rashes or skin changes. No itching. EXTREMITIES: Denies any lower Extremity edema. Denies any claudication or peripheral ulcer. A full 12 point ROS was obtained and is negative other than that cited above. PHYSICAL EXAMINATION: BP 154/91 (BP Site: Left Arm, BP Position: Standing) Pulse (!) 53 Ht 177.8 cm (5' 10 ) Wt 94.3 kg (208 lb) BMI 29.84 kg/m BMI 29.84 kg/(m^2) GENERAL: Well developed and well nourished, NAD. EYES: Conjunctivae- pink, Non-icterus sclera. HEENT : Normocephalic, atraumatic, oral pharynx clear, MMM and pink. NECK : Supple, No JVD. No cervical lymphadenopathy or masses. No thyromegaly or tenderness. RESPIRATORY: Resp efforts are WNL. Bilat equal air entry. CTA bilaterally CVS : Pericardial friction rub is absent. S1, S2 Normal. No Murmer, or gallops. EDEMA trace VASCULAR: carotid pulses is palpable bilaterally; carotid bruit is absent; No Abdominal bruit. Peripheral pulse palpable . ABDOMEN: soft, non-distended, non-tender, Normoactive BS. No HSM. : NO CVA tenderness. bladder is not distended. LYMPHATICS: No cervical, axillary, inguinal lymphadenopathy. MUSULOSKELATAL: No swollen, tender, or warm joints present. No clubbing, cyanosis or petechiae. SKIN: No rashes or ulcers present. No induration of skin or subcutaneous area. LAB DATA Creatinine, Ur Random (UCRR) 20.0 - 300.0 mg/dL 174.6 171.4 Albumin, Urine Random mg/L <12.0 Albumin/Creat Ratio <30 mg/g <7 Protein, Urine Random 0 - 20 mg/dL 9 Creatinine, Ur Random (UCRR) 20.0 - 300.0 mg/dL 171.4 Protein/Creat Ratio <0.15 mg/mg 0.05 Labs from chronic April 15, 2023 as follow-up Serum creatinine 1.48 mg/L EGFR 50. Prior serum creatinine last year was 1.6 EGFR 40. Potassium 4.3 sodium 140 chloride 105 bicarb 27 glucose 112 slightly elevated. Calcium 8.6 bilirubin 0.4 liver enzymes within range alkaline phosphatase low at 43 total protein 4.7 PSA 1.9 T49.4 TSH 2 cholesterol LDL 75 triglycerides 136 24-hour protein to creatinine ratio 2432 mg/g hemoglobin 13 slightly on the lower side RBC 4.3. Abnormal immature granulocytes. T32.6 Within range. Hemoglobin A1c 5. Kidney ultrasound performed May 17, 2023 as follow-up. Right kidney no evidence of masses or kidney stones normal renal cortical parenchyma. 11.8 x 7.5 x 6.2 cm. Left kidney no evidence of mass or stones 11.9 cm x 5.6 cm. Postvoid residual 32.7 mL. ASSESSMENT AND PLAN 1) CKD Stage IIIA: Have range proteinuria 2432 -Etiology (likely): HTN, excessive exogenous protein intake and NSAIDS. Note pending C3/C4/SPEP/HCV/HBV -Will continue routine monitoring of chemistries. Kidney function: CKD (Cr trend over the years) Kidney sizes: moderatly large kidneys, with increased echogenicity, no obstruction Have reviewed CKD staging and preventing progression. Have reviewed NSAID avoidance and avoidance of IV dye. 2) Hypertension: On bisoprolol hydralazine - Suboptimal control, Recently better controlled - Recommended regular aerobic exercise. - Recommended home blood pressure monitoring, to bring results in on next visit - Goal of BP <140/90 - The patient was advised to follow a low salt/DASH diet. 3) Anemia: Mild anemia -Hemoglobin is adequate. -Continue periodic monitoring of CBC and iron studies. 4) Secondary Hyperparathyroidism/CKD-MBD: Monitor vitamin D -Intact PTH, vitamin d, calcium, and phosphorus levels are acceptable. -No changes -in management. -Will continue to monitor these indices. 5) Acid-base: Metabolic alkalosis to rule out aldosteronism -Serum bicarbonate level is acceptable. - No changes in management. 6) Proteinuria: -Will continue monitor microalbumin/creatinine ratio. 7) Dyslipidemia: -The patient has moderate CKD and would benefit from aggressive lipid control with an LDL goal of <100 and TG less than 150mg/dl. Plan: Complete resolution of proteinuria Exogenous protein intake likely the cause as patient follows a strict protein diet and his proteinuria resolved completely. Patient off NSAIDs since last visit. Chronic stage IIIa with heavy proteinuria suspected due to increased exogenous protein intake 24 years consumed more than 200 g of protein a day (5 times than normal allowed dose) Workup for secondary hypertension has been unremarkable Heavy analgesic use during the years of training Both above factors has been the past 3 years however CKD and proteinuria persist To rule out other as of CKD and hypertension: Workup ordered To continue diet and lifestyle modifications: To limit protein intake to not more than 40 g a day, 17 g/day To reduce salt and carb intake To limit fluid intake heavy range proteinuria related to fluid retention To continue losartan 25 mg p.o. daily To follow intermittent fasting 16 to 8 hours To minimize inflammation in the body To avoid NSAIDs To discontinue hydralazine To check Cystatin C as his creatinine might be elevated to 2 increased muscle mass The majority of the visit was spent counseling and/or coordinating care for the patient. We discussed natural history of disease, current treatment options, and future potential treatment options. We discussed diet, exercise, other non-medical management as above. I spent a total of 60 minutes on the date of the service which included preparing to see the patient, completing clinical documentation, obtaining and/or reviewing separately obtained history, performing a medically appropriate examination, counseling and educating the patient/family/caregiver, ordering medications, tests, or procedures, communicating results to the patient/family/caregiver, and care coordination (not separately reported). Current data and imaging studies were reviewed with patient. All questions were answered to patients satisfaction, who verbalized full understanding and was in agreement with above plan. Return in 6 months (on 01/18/2024). For follow-up I have asked that she return to clinic in 3 months or earlier if needed. Thank you for allowing me to participate in this patient's care. Please feel free to contact me with any questions or concerns. Follow up with No primary care provider on file. for all non-renal problems This note was partially created using voice recognition software and is inherently subject to errors including those of syntax and sound-alike substitutions which may escape proofreading. In such instances, original meaning may be extrapolated by contextual derivation. Some elements copied from my previous note which have been updated where appropriate, and all reflect current medical decision making from date of this visit.. With warmest regards, Marla Jarrell MD Nephrology and Hypertension [employer] Clinical anesthesia attending [facility] [address] [place], [place] [address] documented in this encounter [facility] Evaluation + Plan note 05-20-2023 Laboratory Note Date & Type Note Facility 05-20-2023 Evaluation + Plan note Diagnostic Tests PendingSemen Analysis Post Vasectomy 05/20/23Sperm Morphology 05/20/23 Future Scheduled TestsSemen Analysis Post Vasectomy 08/08/22 [facility] Evaluation + Plan note 08-08-2022 Laboratory Note Date & Type Note Facility 08-08-2022 Evaluation + Plan note Future Scheduled TestsSemen Analysis Post Vasectomy 08/08/22Semen Analysis Post Vasectomy 08/08/22 [facility] Discharge instructions 08-08-2022 Note Date & Type Note Facility 08-08-2022 Hospital Discharg e instructions Patient Education 08/08/2022 08:41:31 Contraception Choices Contraception Choices Contraception, also called control, refers to methods or devices that prevent . Hormonal methods Contraceptive implant A contraceptive implant is a thin, plastic tube that contains a hormone. It is inserted into the upper part of the arm. It can remain in place for up to 3 years. Progestin-only injections Progestin-only injections are injections of progestin, a synthetic form of the hormone progesterone. They are given every 3 months by a health care provider. control pills control pills are pills that contain hormones that prevent . They must be taken once a day, preferably at the same time each day. control patch The control patch contains hormones that prevent . It is placed on the skin and must be changed once a week for three weeks and removed on the fourth week. A prescription is needed to use this method of contraception. Vaginal ring A vaginal ring contains hormones that prevent . It is placed in the vagina for three weeks and removed on the fourth week. After that, the process is repeated with a new ring. A prescription is needed to use this method of contraception. Emergency contraceptive Emergency contraceptives prevent after unprotected sex. They come in pill form and can be taken up to 5 days after sex. They work best the sooner they are taken after having sex. Most emergency contraceptives are available without a prescription. This method should not be used as your only form of control. Barrier methods Male condom A male condom is a thin sheath that is worn over the penis during sex. Condoms keep sperm from going inside a woman's body. They can be used with a spermicide to increase their effectiveness. They should be disposed after a single use. Female condom A female condom is a soft, loose-fitting sheath that is put into the vagina before sex. The condom keeps sperm from going inside a woman's body. They should be disposed after a single use. Diaphragm A diaphragm is a soft, dome-shaped barrier. It is inserted into the vagina before sex, along with a spermicide. The diaphragm blocks sperm from entering the uterus, and the spermicide kills sperm. A diaphragm should be left in the vagina for 6 8 hours after sex and removed within 24 hours. A diaphragm is prescribed and fitted by a health care provider. A diaphragm should be replaced every 1 2 years, after giving , after gaining more than 15 lb (6.8 kg), and after pelvic surgery. Cervical cap A cervical cap is a round, soft latex or plastic cup that fits over the cervix. It is inserted into the vagina before sex, along with spermicide. It blocks sperm from entering the uterus. The cap should be left in place for 6 8 hours after sex and removed within 48 hours. A cervical cap must be prescribed and fitted by a health care provider. It should be replaced every 2 years. Sponge A sponge is a soft, circular piece of polyurethane foam with spermicide on it. The sponge helps block sperm from entering the uterus, and the spermicide kills sperm. To use it, you make it wet and then insert it into the vagina. It should be inserted before sex, left in for at least 6 hours after sex, and removed and thrown away within 30 hours. Spermicides Spermicides are chemicals that kill or block sperm from entering the cervix and uterus. They can come as a cream, jelly, suppository, foam, or tablet. A spermicide should be inserted into the vagina with an applicator at least 10 15 minutes before sex to allow time for it to work. The process must be repeated every time you have sex. Spermicides do not require a prescription. Intrauterine contraception Intrauterine device (IUD) An IUD is a T-shaped device that is put in a woman's uterus. There are two types: Hormone IUD.This type contains progestin, a synthetic form of the hormone progesterone. This type can stay in place for 3 5 years. Copper IUD.This type is wrapped in copper wire. It can stay in place for 10 years. Permanent methods of contraception Female tubal ligation In this method, a woman's fallopian tubes are sealed, tied, or blocked during surgery to prevent eggs from traveling to the uterus. Hysteroscopic sterilization In this method, a small, flexible insert is placed into each fallopian tube. The inserts cause scar tissue to form in the fallopian tubes and block them, so sperm cannot reach an egg. The procedure takes about 3 months to be effective. Another form of control must be used during those 3 months. Male sterilization This is a procedure to tie off the tubes that carry sperm (vasectomy). After the procedure, the man can still ejaculate fluid (semen). Natural planning methods Natural family planning In this method, a couple does not have sex on days when the woman could become . Calendar method This means keeping track of the length of each menstrual cycle, identifying the days when can happen, and not having sex on those days. Ovulation method In this method, a couple avoids sex during ovulation. Symptothermal method This method involves not having sex during ovulation. The woman typically checks for ovulation by watching changes in her temperature and in the consistency of cervical mucus. Post-ovulation method In this method, a couple waits to have sex until after ovulation. Summary Contraception, also called control, means methods or devices that prevent . Hormonal methods of contraception include implants, injections, pills, patches, vaginal rings, and emergency contraceptives. Barrier methods of contraception can include male condoms, female condoms, diaphragms, cervical caps, sponges, and spermicides. There are two types of IUDs (intrauterine devices). An IUD can be put in a woman's uterus to prevent for 3 5 years. Permanent sterilization can be done through a procedure for males, females, or both. Natural family planning methods involve not having sex on days when the woman could become . This information is not intended to replace advice given to you by your health care provider. Make sure you discuss any questions you have with your health care provider. Document Released: 05/29/2006 Document Revised: 05/31/2018 Document Reviewed: 07/01/2017 [employer] Patient Education 2020 [employer]. Follow Up Care 06/27/2022 11:47:27 With:AIXA NORMAN, Hosea Parada, URL Address: [facility] [address] [place] [id number]- When: Unknown [facility] Discharge instructions 06-27-2022 Note Date & Type Note Facility 06-27-2022 Hospital Discharg e instructions Patient Education 06/27/2022 08:12:28 Vasectomy, Care After Vasectomy, Care After This sheet gives you information about how to care for yourself after your procedure. Your health care provider may also give you more specific instructions. If you have problems or questions, contact your health care provider. What can I expect after the procedure? After your procedure, it is common to have: Mild pain, swelling, redness, or discomfort in your scrotum. Some blood coming from your incisions or puncture sites for one or two days. Blood in your semen. Follow these instructions at home: Medicines Take vfet-yqm-okwanez and prescription medicines only as told by your health care provider. Avoid taking NSAIDs such as aspirin and ibuprofen, because these medicines can make bleeding worse. Activity For the first 2 days after surgery, avoid physical activity and exercise that require a lot of energy. Ask your health care provider what activities are safe for you. Do not participate in sports or perform heavy physical labor until your pain has improved, or until your health care provider says it is okay. Do not ejaculate for at least 1 week after the procedure, or as long as directed. You may resume sexual activity 7 10 days after your procedure, or when your health care provider approves. Use a different method of control (contraception) until you have had test results that confirm that there is no sperm in your semen. Scrotal support Use scrotal support, such as a jock strap or underwear with a supportive pouch, as needed for one week after your procedure. If you feel discomfort in your scrotum, you may remove the scrotal support to see if the discomfort is relieved. Sometimes scrotal support can press on the scrotum and cause or worsen discomfort. If your skin gets irritated, you may add some germ-free (sterile), fluffed bandages or a clean washcloth to the scrotal support. General instructions Put ice on the injured area: ?Put ice in a plastic bag. ?Place a towel between your skin and the bag. ?Leave the ice on for 20 minutes, 2 3 times a day. Check your incisions or puncture sites every day for signs of infection. Check for: ?Redness, swelling, or pain. ?Fluid or blood. ?Warmth. ?Pus or a bad smell. Leave stitches (sutures) in place. The sutures will dissolve on their own and do not need to be removed. Keep all follow-up visits as told by your health care provider. This is important because you will need a test to confirm that there is no sperm in your semen. Multiple ejaculations are needed to clear out sperm that were beyond the vasectomy site. You will need one test result showing that there is no sperm in your semen before you can resume unprotected sex. This may take 2 4 months after your procedure. Do not drive for 24 hours if you were given a sedative to help you relax. Contact a health care provider if: You have redness, swelling, or more pain around your incision or puncture site, or in your scrotum area in general. You have bleeding from your incision or puncture site. You have pus or a bad smell coming from your incision or puncture site. You have a fever. Your incision or puncture site opens up. Get help right away if: You develop a rash. You have difficulty breathing. Summary After your procedure it is common to have mild pain, swelling, redness, or discomfort in your scrotum. Avoid physical activity and exercise that requires a lot of energy for the first 2 days after surgery. Put ice on the injured area. Leave the ice on for 20 minutes, 2 3 times a day. Do not drive for 24 hours if you were given a sedative to help you relax. This information is not intended to replace advice given to you by your health care provider. Make sure you discuss any questions you have with your health care provider. Document Released: 12/16/2005 Document Revised: 05/11/2018 Document Reviewed: 08/25/2017 [employer] Patient Education 2020 [employer]. Follow Up Care 05/03/2022 11:40:43 With:Hosea BYERS MD, URL Address: [facility] [address], [place] [address]- When: Unknown [facility] Evaluation + Plan note Note Date & Type Note Facility Evaluation + Plan note Future Appointments Appointment Date:08/08/2022 03:30:00 PM Scheduled Provider:Hosea BYERS MD Location:[facility] Appointment Type:URO Office Visit [facility] Evaluation note Note Date & Type Note Facility Evaluation note Diagnosis CKD stage G3a/A1, GFR 45-59 and albumin creatinine ratio <30 mg/g (HCC)- Primary Vitamin D deficiency Unspecified vitamin D deficiency Other proteinuria Hypertensive kidney disease Unspecified hypertensive kidney disease with chronic kidney disease stage I through stage IV, or unspecified documented in this encounter [facility] course Narrative Note Date & Type Note Facility Hospital course Narrative No data available for this section [facility] Discharge instructions Note Date & Type Note Facility Hospital Discharge instructions No data available for this section [facility] Progress note Note Date & Type Note Facility Progress note No data available for this section [facility] Summary Purpose Family History No Family History Records Found No data available for this section No Family History Records FoundNo Family History Records Found Advance Directives No Advanced Directives Records FoundNo Advanced Directives Records FoundNo Advanced Directives Records Found Additional Source Comments Patient Care team informatio n (unrecognized section and content) Personnel Name: Leroy Peralta MD Address: Address: [address] [place] [address] Personnel Name: Leroy Peralta MD Address: Address: [address] [place] [address] Personnel Name: Leroy Peralta MD Address: Address: [address] [place] [address] (unrecognized sect ion and content) No Status Records FoundNo Status Records FoundNo Status Records Found INFORMATION SOURCE (unrecogn ized section and content) DATE CREATED AUTHOR 07/29/2022 [facility] DATE CREATED AUTHOR AUTHOR'S ORGANIZ ATION 06/08/2023 [facility] DATE CREATED AUTHOR AUTHOR'S ORGANIZ ATION 07/14/2023 [facility] Source Comments (unrecognize d section and content) In the event this informatio n is protected by the Federal Confidentiality of Alcohol and Drug Abuse Patient Records regulations: The Federal rules restrict any use of the information to criminally investigate or prosecute any alcohol or drug abuse patient.[facility] Reason for Visit (unrecogniz ed section and content) Reason Comments Follow Up FOR RECORDS PERTAINING TO PATIENTS WHO ARE OR HAVE BEEN ENROLLED IN A CHEMICAL DEPENDENCY/SUBSTANCEABUSE PROGRAM, SOME INFORMATION MAY BE OMITTED. This clinical summary was aggregated from multiple sources. Caution should be exercised in using it in the provision of clinical care. This summary normalizes information from multiple sources, and as a consequence, information in this document may materially change the coding, format and clinical context of patient data. In addition, data may be omitted in some cases. CLINICAL DECISIONS SHOULD BE BASED ON THE PRIMARY CLINICAL RECORDS. [facility] [employer] [facility]. provides no warranty or guarantee of the accuracy or completeness of information in this document.
[2023-10-21 08:01] LABS: Basophils Percent Auto 0.3 % (0.2-2.0); Eosinophils Absolute Auto 0.1 10^3/uL (0.0-0.7); Eosinophils Percent Auto 1.6 % (0.9-7.0); Hematocrit 38.5 % (42.0-54.0); Immature Granulocytes Abs Auto 0.02 10^3/uL (0.00-0.03); Immature Granulocytes Pct Auto 0.3 % (0.0-0.5); Lymphocytes Absolute Auto 2.1 10^3/uL (1.2-3.8); Lymphocytes Percent Auto 27.4 % (20.5-60.0); Mean Corpuscular HGB Conc 33.8 g/dL (29.9-35.2); Mean Corpuscular Hemoglobin 30.5 pg (25.9-34.0); Mean Corpuscular Volume 90.4 fL (80.0-94.0); Mean Platelet Volume 9.5 fL (9.5-13.5); Monocytes Absolute Auto 0.7 10^3/uL (0.3-0.8); Monocytes Percent Auto 8.7 % (1.7-12.0); Neutrophils Absolute Auto 4.7 10^3/uL (1.4-6.5); Neutrophils Percent Auto 61.7 % (43.0-75.0); Platelet Count 206 10^3/uL (150-450); Red Blood Count 4.26 10^6/uL (4.70-6.10); Red Cell Distribution Width 12.9 % (11.0-15.0); White Blood Count 7.7 10^3/uL (4.0-11.0)
[2023-10-21 11:02] LABS: Estimated Average Glucose 100 mg/dL; Glycohemoglobin A1C 5.1 % (4.5-6.2)
[2023-10-21 12:41] LABS: Alanine Aminotransferase 51 U/L (16-63); Albumin Globulin Ratio 1.2; Albumin Level 4.1 g/dL (3.4-5.0); Alkaline Phosphatase 49 U/L (46-116); Anion Gap 14.5; Aspartate Amino Transferase 123 U/L (15-37); Bilirubin Total 1.2 mg/dL (0.2-1.0); Calcium 9.4 mg/dL (8.5-10.1); Carbon Dioxide 25.4 mmol/L (21.0-32.0); Chloride 104 mmol/L (98-107); Chol HDL Ratio 3.1; Cholesterol 143 mg/dL (<=200); Estimated GFR (African America 57 (>=60); Estimated GFR (Non-African Ame 47 (>=60); Globulin 3.4 g/dL; Glucose 94 mg/dL (74-106); HDL Cholesterol 46 mg/dL (40-60); LDL Cholesterol Calculated 77.8 mg/dL; Potassium 3.9 mmol/L (3.5-5.1); Sodium 140 mmol/L (136-145); Thyroid Stimulating Hormone 1.539 uIU/mL (0.358-3.740); Total Protein 7.5 g/dL (6.4-8.2); Triglycerides 96 mg/dL (<=150); VLDL CHOLESTEROL 19.2 mg/dL
[2023-10-21 13:14] LABS: Prostate Specific Antigen Scrn 0.86 ng/mL (<=4.00)
[2023-10-21 14:23] LABS: Free T4 1.09 ng/dL (0.76-1.46)
== END 2023-10-21 07:23 | disposition home or self-care (01) ==
LOC: LAB 07:24
PROVIDERS: PCP Family Medicine; Visit Provider Family Medicine
DX: R53.83 Other fatigue (principal); Z79.899 Other long term (current) drug therapy; E78.1 Pure hyperglyceridemia; Z12.5 Encounter for screening for malignant neoplasm of prostate; R73.09 Other abnormal glucose
CPT/HCPCS: 36415; 80053; 80061; 83036; 84439; 84443; 85025; G0103

== ENCOUNTER 2025-04-25 08:41 | Outpatient (OUT) | payer OTHER, SELFPAY ==
--- OUTSIDE RECORDS SUMMARY | 2025-02-06 02:00 | XMS_ITS ---
Author Organization [facility] Address [address] [place] [address] Care Team Providers Care Merchandising Specialist Name Role Phone ADMIN, PROVIDER Primary Care Provider Jareth Echavarria Unavailable [phone] REASON FOR VISIT LAB DINARY Encounters Encounter Location Date Provider Diagnosis [facility] [address] [facility] [address] [place] [address] 02/06/2025 Jareth Echavarria Plan Of Treatment No Information Progress Notes * DAE OZUNAOB:1970 (54 yo M)Acc No.[id number]:02/06/2025 Patient:?LAITH JERROD :?KELY MorganOB:1970???Age:54 Y???Sex: MaleDate:02/06/2025Phone:[phone]:[id number]:PROVIDER ADMIN Subjective: * Chief Complaints: * L AB DINARY * Electronic signature of Jareth Echavarria MD on 04/25/2025 at 08:44 AM ESTSign off status: Pending * Provider: Constance Echavarria MD Date: 0 02/06/2025 Generated for Printing/Faxing/eTransmitting on:?04/25/2025 08:44 AM EST
--- OUTSIDE RECORDS SUMMARY | 2025-04-18 06:31 | XMS_ITS ---
Author Organization [facility] [place] Address [address] [place] [address] Care Team Providers Care It Application Administrator Name Role Phone Maurizio Peralta Primary Care Provider [phone] REASON FOR VISIT yearly labs Encounters Encounter Location Date Provider Diagnosis [facility] Medicine [address] [place] [address] 04/18/2025 Maurizio Peralta Wellness examination Z00.00 Assessments Encounter Date Diagnosis (ICD Code) Assessment Notes Treatment Notes Treatment Clinical Notes Section Notes 04/18/2025 Wellness examination (ICD-10 - Z 00.00) Plan Of Treatment Pending Test Test Name Order Date CBC 04/18/2025 CMP - Comprehensive Metabolic Panel 12/2024 GLYCOHEMOGLOBIN A1C 04/18/2025 LIPID PROFILE 04/18/2025 THYROID PANEL (T4/TSH/FREE T3) PSA, SCREENING 04/18/2025 Next Appt Details Provider Name:Maurizio Peralta, 09:30:00 AM, [address] [place], [address], Progress Notes * Amauri AGUIAR LDOB: 2 (54 yo M)Acc No.[id number]:04/18/2025 Patient:?Amauri AGUIAR :1970???Age:54 Y???Sex:MalePhone:[phone] Address:[address] [place], [address] Subjective: * Chief Complaints: * Y early labs * Medical History: * Surgical History: * Hospitalization/Major Diagno stic Procedure: * Medications: Objective: * Vitals: * Physical Examination: ??? Assessment: * Assessment: 1.?Wellness examination - Z00.00 (Primary)??? Plan: * Treatment: ?LAB: CBC ?LAB: CMP - Comprehensive Metabolic Panel ?LAB: GLYCOHEMOGLOBIN A1C ?LAB: LIPID PROFILE ?LAB: THYROID PANEL (T4/TSH/FREE T3) ?LAB: PSA, SCREENING * Procedure Codes: * true * Date:?Generated for Printing/Faxing/eTransmitting on:?04/25/2025 08:45 AM EST
--- OUTSIDE RECORDS SUMMARY | 2025-04-25 08:45 | XMS_ITS | Patient Health Record ---
Author Organization [facility] Address [address] [address] Care Team Providers Care Granite Sandblaster Apprentice Name Role Phone ADMIN, PROVIDER Primary Care Provider Radiology, [facility] Unavailable Jareth Echavarria Unavailable [phone] Results Component Value Reference Range Flag Notes US RENAL ARTERY DUPLEX (Not yet reviewed by provider) Interpretation: Performing Lab: Notes/Report: US KIDNEY & BLADDER (Not yet reviewed by provider) Interpretation: Performing Lab: Notes/Report: Ordering Provider: BEATRIZ JOHN Relevant Clinical Information: CHRONIC KIDNEY DISEASE NUMBER OF VIEWS:0 CONTRAST: Study Description: US KIDNEY & BLADDER Exam date 11/07/2024 Renal ultrasound Right kidney measured 12.2 x 5.8 x 5.9 cm. Left kidney measured 12.1 x 6.2 x 6.4 cm. Echogenicity of the renal cortex is normal bilaterally. There is no hydronephrosis. Within the midportion of the right kidney there is an 8 x 8 mm cyst. No stones are evident. Urinary bladder appears normal with no abnormal bladder wall thickening or bladder stones. Prevoid bladder volume is 630 cc of the postvoid bladder volume of 51 cc (8% residual). Prostate measures 4.9 x 4.1 x 4 cm. Impression: 1. Small postvoid residual bladder volume. 2. 8 mm right renal cyst Chin Biggs M.D. Electronically Signed by and Verified Date Report Signed: 11/07/2024 11:50:38 AM Service & Support: or [phone] Metanephrines, Frac., Pl. Fr ee Reviewed date:03/27/2025 01:17:40 PM Interpretation: Performing Lab: Notes/Report: Normetanephrine, Pl 55.6 0.0-244.0 pg/mL [place] [address] [place] [address] Metanephrine, Pl<25.00.0-88.0 pg/mL [facility] [place] [address] Cortisol Reviewed date:03/27/2025 01:17:40 PM Interpretation: Performing Lab: Notes/Report:Qtxsqjco22.66.2-19.4 ug/dL 6370 [facility], [facility] this test is for an AM collection. If this is a PM [facility] collection please use: Cortisol PM: 2.3-11.9 [place] [address] Please Note: The reference interval and flagging for Aldosterone/Renin Ratio Reviewed date:03/27/2025 01:17:40 PM Interpretation: Performing Lab: Notes/Report: [facility] Units: ng/dL per ng/mL/hr [address] [place] [address] [phone] [place] [address] [place] [address] [place] [address] Kristal Little, KEVANldosterone4.40.0-30.0 ng/dLRenin Activity, Plasma1.3110.167- 5.380 ng/mL/hrAldos/Renin Ratio3.40.0-30.0MICROALBUMIN, CREATININE RATIO, MALB/CREAT RATIO, RANDOM URINE Reviewed date:03/27/2025 01:17:40 PM Interpretation: Performing Lab:[facility], [address], [place] [address] Notes/Report: FTN: RATIO COULD NOT BE CALCULATED DUE TO THE NON-NUMERICAL VALUE OF MALBMALB<7 7.0 - 30.0 mg/LLUR STUVZFIKQJ766.111.0 - 150.0 mg/dLTSH, THYROID STIMULATING HORMONE Reviewed date:03/27/2025 01:17:40 PM Interpretation: Performing Lab:[facility], [address] [address] Notes/Report:TSH2.530.45 - 5.33 UIU/mLMICROALBUMIN, CREATININE RATIO, MALB/CREAT RATIO, RANDOM URINE Reviewed date:03/27/2025 01:17:32 PM Interpretation: Performing Lab:[facility], [address], [place] [address] Notes/Report: FTN: RATIO COULD NOT BE CALCULATED DUE TO THE NON-NUMERICAL VALUE OF MALBMALB<7 7.0 - 30.0 mg/LLUR DZGVSUJHGU937.111.0 - 150.0 mg/dL Reason For Referral No Information Social History Social History Tobacco Use:Social InfoQuestionAnswerNotesTobacco Use/Smoking? How long has it been since you last smoked?> 10 years Problems Problem Type SNOMED Code ICD Code Onset Dates Problem Status W/U Status Risk Notes Problem Vitamin D deficiency (76218345) Vitamin D deficiency (E55.9) ActiveconfirmedProblemChronic kidney disease due to hypertension (196381405537636)Hypertensive kidney disease (I12.9)ActiveconfirmedProblem chronic kidney disease stage 3a (disorder) (860720362)CKD stage G3a/A1, GFR 45- 59 and albumin creatinine ratio <30 mg/g (N18.31)Activeconfirmed Encounters Encounter Location Date [id number] [address] [place], [place] [id number] 11/07/2024 [facility] CKD stage G3a/A1, GFR 45-59 and albumin creatinine ratio <30 mg/g N18.31 [facility] Sne[facility]RAD [address] [place], [place] [id number] 02/06/2025 [facility] CKD stage G3a/A1, GFR 45-59 and albumin creatinine ratio <30 mg/g N18.31 and Hypertensive kidney disease I12.9 Assessments Encounter Date Diagnosis (ICD Code) Assessment Notes Treatment Notes Treatment Clinical Notes Section Notes 11/07/2024 CKD stage G3a/A1, GF R 45-59 and albumin creatinine ratio <30 mg/g (ICD-10 - N18.31) 08/28/2025Hypertensive kidney disease (ICD-10 - I12.9)5CKD stage G3a/A1, GFR 45-59 and albumin creatinine ratio <30 mg/g (ICD-10 - N18.31) Plan Of Treatment Pending Test Test Name Order Date US KIDNEY & BLADDER 10/31/2024 RENAL ARTERY DUPLEX 01/21/2025 Insurance Providers Payer Name Payer Address Payer Phone Subscriber Number Group Number Insured Name Patient Relationship to Insured Coverage Start Date Coverage End Date Medical [facility] [address] [place] [address] [id number] JERROD OZUNA Self - patient is the insured
--- OUTSIDE RECORDS SUMMARY | 2025-04-25 08:46 | XMS_ITS | Clinical Summary ---
Author Organization [facility] Address [address] [place] [address] Care Team Providers Care Industrial Gas Fitter Helper Name Role Phone Unavailable Primary Care Provider Unavailabl e Social History Tobacco UseTypesPacks/DayYears UsedDateSmoking Tobacco: Never AssessedSex and Gender InformationValueDate RecordedSex Assigned at BirthNot on fileLegal Sex Male12/08/2021 11:04 PM EDTGender IdentityNot on fileSexual OrientationNot on file Plan of Treatment Not on file
[2025-04-25 08:57] LABS: Hematocrit 40.9 % (42.0-54.0); Hemoglobin 14.0 g/dL (14.0-18.0); Immature Granulocytes Abs Auto 0.03 10^3/uL (0.00-0.03); Immature Granulocytes Pct Auto 0.4 % (0.0-0.5); Lymphocytes Absolute Auto 1.7 10^3/uL (1.2-3.8); Mean Corpuscular HGB Conc 34.2 g/dL (29.9-35.2); Mean Corpuscular Hemoglobin 30.5 pg (25.9-34.0); Mean Corpuscular Volume 89.1 fL (80.0-94.0); Platelet Count 216 10^3/uL (150-450); Red Blood Count 4.59 10^6/uL (4.70-6.10); White Blood Count 7.4 10^3/uL (4.0-11.0)
[2025-04-25 09:45] LABS: Alanine Aminotransferase 44 U/L (16-63); Albumin Globulin Ratio 1.1; Albumin Level 4.0 g/dL (3.4-5.0); Alkaline Phosphatase 52 U/L (46-116); Anion Gap 13.8; Aspartate Amino Transferase 29 U/L (15-37); Blood Urea Nitrogen 16.0 mg/dL (7.0-18.0); Calcium 9.5 mg/dL (8.5-10.1); Carbon Dioxide 28.0 mmol/L (21.0-32.0); Chloride 106 mmol/L (98-107); Cholesterol 162 mg/dL (<=200); Estimated GFR (African America 58 (>=60 mL/min/1.73m^2); Estimated GFR (Non-African Ame 48 (>=60 mL/min/1.73m^2); Free T3 2.85 pg/mL (2.18-3.98); Globulin 3.6 g/dL; Glucose 113 mg/dL (74-106); HDL Cholesterol 38 mg/dL (40-60); Potassium 4.8 mmol/L (3.5-5.1); Sodium 143 mmol/L (136-145); Thyroid Stimulating Hormone 1.635 uIU/mL (0.358-3.740); Total Protein 7.6 g/dL (6.4-8.2); Triglycerides 119 mg/dL (<=150); VLDL CHOLESTEROL 23.8 mg/dL
== END 2025-04-25 08:42 | disposition home or self-care (01) ==
LOC: LAB 08:41
PROVIDERS: PCP Family Medicine; Visit Provider Family Medicine
DX: Z00.00 Encounter for general adult medical examination without abnormal findings (principal); Z12.5 Encounter for screening for malignant neoplasm of prostate
CPT/HCPCS: 36415; 80053; 80061; 83036; 84436; 84443; 84481; 85025; G0103